=== PATIENT | female | born 1995 | race Caucasian/White ===

== ENCOUNTER 2017-12-07 00:12 | Emergency (ER) | payer OTHER ==
--- NOTE | 2017-12-07 01:52 | PDOC ---
History of Present Illness - General History Source: Patient Exam Limitations: No Limitations <Chidi Rosales - Last Filed: 12/07/17 01:52> - General History Source: Patient Exam Limitations: No Limitations - History of Present Illness Initial Comments: 12/07/17 02:01 The patient is a 22 year old female with a significant PMH of anemia who presents to the emergency department with a headache beginning approximately 3 days ago. The patient describes her headache as an intermittent pressure-like sensation which is sometimes diffuse but is mostly localized to the left side. She reports she has been taking 2 ibuprofen daily to significant relief but notes her headache returns the next morning. The patient states she has an irregular sleep schedule and sometimes stays up all night watching TV, which she states aggravates her headache. The patient denies history of migraines. The patient denies chest pain, shortness of breath, and dizziness. Denies fever, chills, nausea, vomit, diarrhea and constipation. Denies dysuria, frequency, urgency and hematuria. Allergies: NKA Past surgical history: None reported. Social history: No reported cigarette, alcohol, or drug use. PCP: Dr. Philip Barker <Chidi Chi - Last Filed: 12/07/17 02:02> - General Stated Complaint: HEADACHE Time Seen by Provider: 12/07/17 01:27 Review of Systems - Review of Systems Able to Perform ROS?: Yes Comments:: 12/07/17 02:01 GENERAL/CONSTITUTIONAL: No fever or chills. No weakness. HEAD, EYES, EARS, NOSE AND THROAT: No change in vision. No ear pain or discharge. No sore throat. CARDIOVASCULAR: No chest pain or shortness of breath. RESPIRATORY: No cough, wheezing, or hemoptysis. GASTROINTESTINAL: No nausea, vomiting, diarrhea or constipation. GENITOURINARY: No dysuria, frequency, or change in urination. MUSCULOSKELETAL: No joint or muscle swelling or pain. No neck or back pain. SKIN: No rash NEUROLOGIC: (+) Headache. No vertigo, loss of consciousness, or change in strength/sensation. ENDOCRINE: No increased thirst. No abnormal weight change. HEMATOLOGIC/LYMPHATIC: No anemia, easy bleeding, or history of blood clots. ALLERGIC/IMMUNOLOGIC: No hives or skin allergy. <Chidi Chi - Last Filed: 12/07/17 02:02> *Physical Exam - Physical Exam Comments: 12/07/17 02:02 GENERAL: Awake, alert, and fully oriented, in no acute distress HEAD: No signs of trauma EYES: PERRLA, EOMI, sclera anicteric, conjunctiva clear ENT: Auricles normal inspection, hearing grossly normal, nares patent, oropharynx clear without exudates. Moist mucosa NECK: Normal ROM, supple, no lymphadenopathy, JVD, or masses LUNGS: Breath sounds equal, clear to auscultation bilaterally. No wheezes, and no crackles HEART: Regular rate and rhythm, normal S1 and S2, no murmurs, rubs or gallops ABDOMEN: Soft, nontender, normoactive bowel sounds. No guarding, no rebound. No masses EXTREMITIES: Normal range of motion, no edema. No clubbing or cyanosis. No cords, erythema, or tenderness NEUROLOGICAL: Cranial nerves II through XII intact. 5/5 strength in upper and lower extremities. Sensation intact. No pronator drift. Normal speech, normal gait SKIN: Warm, Dry, normal turgor, no rashes or lesions noted. <Chidi Chi - Last Filed: 12/07/17 02:02> Medical Decision Making - Medical Decision Making 12/07/17 01:52 A portion of this note was documented by scribe services under my direction. I have reviewed the details of the note, within reason, and agree with the documentation with the following case summary and management plan written by me. Patient treated in the ED. Nursing notes are reviewed and incorporated into the medical decision-making. Vital signs reviewed. Peripheral IV access obtained by the nurse, laboratory studies are drawn and sent, reviewed and interpreted by myself. 22-year-old female with no past medical history presents with tension-like headache for several days. Patient reports that her sleep pattern has been very off. At times she was still very late week of very early. Has developed a left- sided tension-like headache and some mild photophobia. Denies neck stiffness, fevers, chills or worse headache of life. Patient reports of headache is gradual and resolves with Motrin. Patient states that she was taking about her headache and got nervous so came to the ER for check up. She denies any neurological deficits. I suspect this is likely tension headache exacerbated by poor sleep hygiene. I did discuss the potential diagnostic test of CAT scan the head with the patient. However, given that the headache is mild to moderate and resolves with Motrin, we had both decided and share decision-making to defer on CAT scan given the radiation risk and to treat symptomatically with NSAIDs. Advised patient if the headache persists for another week to return to the ER for CAT scan the head. We will give a referral to neurology. I discussed the physical exam findings, ancillary test results and final diagnoses with the patient. I answered all of the patient's questions. The patient was satisfied with the care received and felt comfortable with the discharge plan and treatment plan. The patient will call their primary care physician within 24 hours to arrange follow-up and will return to the Emergency Department with any new, persistant or worsening symptoms. <Chidi Rosales - Last Filed: 12/07/17 01:52> *DC/Admit/Observation/Transfer - Discharge Dispostion Decision to Admit order: No <Chidi Rosales - Last Filed: 12/07/17 01:52> - Attestations Scribe Attestion: 12/07/17 02:02 Documentation prepared by Chidi Chi, acting as emergency medical service coordinator for Chidi Rosales MD. <Chidi Chi - Last Filed: 12/07/17 02:02> Diagnosis at time of Disposition: Headache Qualifiers: Headache type: unspecified Headache chronicity pattern: unspecified pattern Intractability: not intractable Qualified Code(s): R51 - Headache - Discharge Dispostion Disposition: HOME Condition at time of disposition: Good - Referrals Referrals: Philip Sahu MD [Primary Care Provider] - Ricco Vazquez MD [Staff Physician] - - Patient Instructions Printed Discharge Instructions: DI for Headache Additional Instructions: Please take 400 mg ibuprofen (motrin) every 6 hours as needed for headache. If you notice that your headache is persistent for more than 1 week, please call and make an appointment with a neurologist and/or return to the ER for a CT scan of your head. Please try to maintain a normal sleep schedule. Avoid alcohol until your headache is improved. - Post Discharge Activity
[2017-12-07 02:03] VITALS: BP 112/64; PULSE 70; TEMP 98.2; BMI 22.4
== END 2017-12-07 02:49 | disposition home or self-care (01) ==
LOC: JER 00:12
DX: R51 Headache (principal)
CPT/HCPCS: 99281-25

== ENCOUNTER 2018-08-23 18:00 | Emergency (ER) | payer OTHER ==
[2018-08-23 18:11] VITALS: BP 112/75; PULSE 99; TEMP 100.1; BMI 22.8
--- NOTE | 2018-08-23 18:58 | PDOC ---
History of Present Illness - General Chief Complaint: Sore Throat Stated Complaint: FEVER/SORE THROAT Time Seen by Provider: 08/23/18 18:58 History Source: Patient Past History - Past Medical History Allergies/Adverse Reactions: Allergies Allergy/AdvReac Type Severity Reaction Status Date / Time No Known Allergies Allergy Verified 12/07/17 02:03 Home Medications: Ambulatory Orders NK [No Known Home Medication] 08/23/18 - Suicide/Smoking/Psychosocial Hx Smoking History: Unknown if ever smoked Have you smoked in the past 12 months: No Information on smoking cessation initiated: No Hx Alcohol Use: No Drug/Substance Use Hx: No *Physical Exam - Vital Signs Last Vital Signs Temp Pulse Resp BP Pulse Ox 100.1 F H 99 H 20 112/75 98 08/23/18 18:07 08/23/18 18:07 08/23/18 18:07 08/23/18 18:07 08/23/18 18:07 Moderate Sedation - Procedure Monitoring Vital Signs: Procedure Monitoring Vital Signs Temperature 100.1 F H 08/23/18 18:07 Pulse Rate 99 H 08/23/18 18:07 Respiratory Rate 20 08/23/18 18:07 Blood Pressure 112/75 08/23/18 18:07 O2 Sat by Pulse Oximetry (%) 98 08/23/18 18:07
[2018-08-23] MEDS ORDERED: PENICILLIN G BENZATHINE 1,200,000 UNIT/2 ML PFS IM ONE (19:05)
[2018-08-23] MEDS ORDERED: PENICILLIN G BENZATHINE 2,400,000 UNIT/4 ML PFS ONE (19:11)
--- NOTE | 2018-08-23 19:16 | PDOC ---
History of Present Illness - General Chief Complaint: Sore Throat Stated Complaint: FEVER/SORE THROAT Time Seen by Provider: 08/23/18 18:58 History Source: Patient Exam Limitations: No Limitations - History of Present Illness Initial Comments: 08/23/18 19:05 Here with complaints of acute onset of sore throat pain, fevers and chills, difficulty swallowing 2 days ago. Has been using Tylenol and Motrin with some resolved. Has no cough, no one else at home is sick. States feels like she may have strep throat as has had in the past last year Timing/Duration: unsure Severity: mild, moderate Associated Symptoms: reports: fever/chills, malaise Past History - Travel Traveled outside of the country in the last 30 days: No Close contact w/someone who was outside of country & ill: No - Past Medical History Allergies/Adverse Reactions: Allergies Allergy/AdvReac Type Severity Reaction Status Date / Time No Known Allergies Allergy Verified 12/07/17 02:03 Home Medications: Ambulatory Orders Ibuprofen 400 mg PO Q6H PRN #30 tablet 08/23/18 - Suicide/Smoking/Psychosocial Hx Smoking History: Unknown if ever smoked Have you smoked in the past 12 months: No Information on smoking cessation initiated: No Hx Alcohol Use: No Drug/Substance Use Hx: No Review of Systems - Review of Systems Able to Perform ROS?: Yes Is the patient limited Hebrew proficient: Yes Constitutional: Yes: Symptoms Reported, See HPI, Chills, Fever, Malaise HEENTM: Yes: Symptoms Reported, See HPI, Nose Congestion, Throat Pain, Throat Swelling, Difficulty Swallowing Respiratory: Yes: See HPI Integumentary: Yes: Symptoms Reported, See HPI All Other Systems: Reviewed and Negative *Physical Exam - Vital Signs Last Vital Signs Temp Pulse Resp BP Pulse Ox 100.1 F H 99 H 20 112/75 98 08/23/18 18:07 08/23/18 18:07 08/23/18 18:07 08/23/18 18:07 08/23/18 18:07 - Physical Exam General Appearance: Yes: Nourished, Appropriately Dressed HEENT: positive: TITA, TMs Normal, Pharyngeal Erythema, Tonsillar Exudate, Tonsillar Erythema, Nasal Congestion, Rhinorrhea. negative: Pharynx Normal Neck: positive: Tender, Supple, Lymphadenopathy (R), Lymphadenopathy (L) Respiratory/Chest: positive: Lungs Clear Musculoskeletal: positive: Normal Inspection Extremity: positive: Normal Capillary Refill, Normal Inspection Integumentary: positive: Normal Color, Pale Neurologic: positive: activities therapist II-XII NML intact, Fully Oriented, Alert, Normal Mood/ Affect, Normal Response Moderate Sedation - Procedure Monitoring Vital Signs: Procedure Monitoring Vital Signs Temperature 100.1 F H 08/23/18 18:07 Pulse Rate 99 H 08/23/18 18:07 Respiratory Rate 20 08/23/18 18:07 Blood Pressure 112/75 08/23/18 18:07 O2 Sat by Pulse Oximetry (%) 98 08/23/18 18:07 Medical Decision Making - Medical Decision Making 08/23/18 19:17 Pharyngitis, probable strep. Treated with one dose of 1.2 million units Bicillin IM with no reaction after 30 minutes. *DC/Admit/Observation/Transfer Diagnosis at time of Disposition: Pharyngitis Qualifiers: Pharyngitis/tonsillitis etiology: unspecified etiology Qualified Code(s): J02.9 - Acute pharyngitis, unspecified - Discharge Dispostion Disposition: HOME Condition at time of disposition: Stable Decision to Admit order: No - Prescriptions Prescriptions: Ibuprofen 400 mg PO Q6H PRN #30 tablet PRN Reason: Pain - Referrals - Patient Instructions Printed Discharge Instructions: DI for Pharyngitis/Tonsillopharyngitis -- Adult Additional Instructions: Rest, drink lots of fluids: Teas, water, soups Eat cold things: Ice cream, ice pops, ice chips Saltwater gargles Steamy showers/seem to face break up mucus Avoid contact with others until fevers and pain resolved Lots of handwashing and good hygiene, this is contagious You have been treated with Bicillin LA 1.2 million units injection which is a one-time treatment for strep pharyngitis. You will not need to take any further antibiotics. Tylenol or Motrin for fever and pain Followup with private physician in one to 2 days as needed if not improving Return to emergency department for worsened symptoms, fevers, dehydration - Post Discharge Activity
== END 2018-08-23 19:43 | disposition home or self-care (01) ==
LOC: JERFT 18:00
DX: J02.9 Acute pharyngitis, unspecified (principal)
CPT/HCPCS: 96372; 99281-25

== ENCOUNTER 2021-08-29 11:32 | Observation (INO) | payer OTHER ==
[2021-08-29] MEDS ORDERED: ACETAMINOPHEN 1000 MG/100 ML BAG IVPB ONE (12:45)
[2021-08-29] MEDS ORDERED: SODIUM CHLORIDE 1,000 ML IV STA (12:45)
[2021-08-29] MEDS ORDERED: ONDANSETRON 4 MG/2 ML VIAL IVPUSH ONE (12:45)
[2021-08-29] MEDS ORDERED: ACETAMINOPHEN INJECTION 100 ML IVPB ONE (13:27)
[2021-08-29] MEDS ORDERED: ONDANSETRON 4 MG/2 ML VIAL ONE (13:28)
[2021-08-29 14:15] LABS: BASO % 0.2 % (0-2.0); LYMPH % 6.6 % (8-40); MCHC 29.2 g/dl (32.0-36.0); MEAN PLT VOLUME 9.6 fl (7.5-11.1); MONO % 5.3 % (3.8-10.2); NEUT % 87.9 % (42.8-82.8); PLATELET COUNT 278 10^3/uL (134-434); RBC 4.18 M/mm3 (3.60-5.2); RDW 23.3 % (11.6-15.6)
[2021-08-29 14:27] LABS: ALBUMIN 3.6 g/dl (3.4-5.0); BLOOD UREA NITROGEN 7.2 mg/dL (7-18); CALCIUM 8.5 mg/dL (8.5-10.1)
[2021-08-29 14:30] LABS: CREATININE 0.6 mg/dL (0.55-1.3)
[2021-08-29 14:31] LABS: BILIRUBIN,TOTAL 1.5 mg/dL (0.2-1)
[2021-08-29 14:32] LABS: TOT PROT 7.4 g/dl (6.4-8.2)
[2021-08-29 14:52] LABS: HEMOGLOBIN 6.7 GM/dL (10.7-15.3)
[2021-08-29 14:58] LABS: INR 1.27 (0.83-1.09); PROTHROMBIN TIME (PATIENT) 14.6 SEC (9.7-13.0)
[2021-08-29 16:50] LABS: ANISOCYTOSIS 3+; MACROCYTOSIS 0; OVALOCYTE 1+; TARGET CELLS 2+
[2021-08-29] MEDS ORDERED: ACETAMINOPHEN 325 MG TABLET (FP) PO ONE (20:27)
[2021-08-29] MEDS ORDERED: ACETAMINOPHEN 325 MG TABLET (FP) ONE (20:30)
[2021-08-29 20:51] LABS: EPI CELLS 15 /uL (0-25.1); HYALINE CASTS 1 /uL (0-3.1); PH,URINE 5.5 (5.0-8.0); URINE APPEARANCE CLOUDY; URINE BACTERIA 1500 /uL (0-1359); URINE BILIRUBIN NEGATIVE (NEGATIVE); URINE COLOR YELLOW; URINE GLUCOSE (UA) NEGATIVE (NEGATIVE); URINE KETONE 1+ (NEGATIVE); URINE LEUK ESTERASE 2+ (NEGATIVE); URINE NITRITE NEGATIVE (NEGATIVE); URINE PROTEIN 1+ (NEGATIVE); URINE RBC 347 /uL (0-23.9); URINE UROBILINOGEN 0.2 mg/dL (0.2-1.0); URINE WBC 1669 /uL (0-25.8)
[2021-08-29 20:52] LABS: HCG,QUALITATIVE URINE Negative
[2021-08-30] MEDS ORDERED: DOXYCYCLINE HYCLATE 100 MG VIAL ONE ×3 (00:40→21:16)
[2021-08-30] MEDS: SODIUM CHLORIDE 1,000 ML IV SCH ×2 (00:59→23:38)
[2021-08-30] MEDS ORDERED: ACETAMINOPHEN 325 MG TABLET (FP) PO PRN (01:00)
[2021-08-30 02:14] LABS: HIV INTERPRETATION NEGATIVE (NEGATIVE)
[2021-08-30] MEDS: DOXYCYCLINE INJECTION 100 MG in DEXTROSE 5%-WATER 100 ML IVPB SCH ×3 (03:06→21:50)
[2021-08-30] MEDS ORDERED: ENOXAPARIN NA (PORCINE) 40 MG/0.4 ML DISP.SYRIN SQ SCH (10:00)
[2021-08-30] MEDS ORDERED: FLUCONAZOLE 150 MG TABLET PO ONE (10:00)
[2021-08-30 10:16] LABS: BASO % 0.3 % (0-2.0); CALCIUM 7.8 mg/dL (8.5-10.1); EOS % 0.6 % (0-4.5); HEMATOCRIT 27.1 % (32.4-45.2); HEMOGLOBIN 8.6 GM/dL (10.7-15.3); LYMPH % 17.4 % (8-40); MCHC 31.7 g/dl (32.0-36.0); MEAN CELL VOLUME 62.3 fl (80-96); MEAN PLT VOLUME 10.5 fl (7.5-11.1); MONO % 5.2 % (3.8-10.2); NEUT % 76.5 % (42.8-82.8); PLATELET COUNT 223 10^3/uL (134-434); RBC 4.35 M/mm3 (3.60-5.2); RDW 32.8 % (11.6-15.6); WHITE BLOOD COUNT 8.4 K/mm3 (4.0-10.0)
[2021-08-30 10:17] LABS: ALBUMIN 3.1 g/dl (3.4-5.0); BLOOD UREA NITROGEN 7.8 mg/dL (7-18)
[2021-08-30 10:20] LABS: CREATININE 0.6 mg/dL (0.55-1.3); MCH 19.8 pg (25.7-33.7); PHOSPHOROUS 2.5 mg/dL (2.5-4.9)
[2021-08-30 10:21] LABS: BILIRUBIN,TOTAL 1.7 mg/dL (0.2-1); TOT PROT 6.3 g/dl (6.4-8.2)
[2021-08-30] MEDS ORDERED: DEXTROSE 5%-WATER 100 ML IVPB ONE ×2 (11:02→21:16)
[2021-08-30] MEDS ORDERED: cefTRIAXone SODIUM 1 GM VIAL ONE (11:03)
[2021-08-30] MEDS ORDERED: DEXTROSE 5%-WATER - 50 ML IVPB ONE (11:03)
[2021-08-30] MEDS: CEFTRIAXONE 1 GM in DEXTROSE 5%-WATER - 50 ML IVPB SCH (11:56)
[2021-08-31] MEDS ORDERED: DOXYCYCLINE HYCLATE 100 MG VIAL ONE (09:30)
[2021-08-31] MEDS ORDERED: cefTRIAXone SODIUM 1 GM VIAL ONE (09:31)
[2021-08-31] MEDS ORDERED: DEXTROSE 5%-WATER - 50 ML IVPB ONE (09:31)
[2021-08-31] MEDS ORDERED: DEXTROSE 5%-WATER 100 ML IVPB ONE (09:31)
[2021-08-31] MEDS: DOXYCYCLINE INJECTION 100 MG in DEXTROSE 5%-WATER 100 ML IVPB SCH (09:38)
[2021-08-31] MEDS: CEFTRIAXONE 1 GM in DEXTROSE 5%-WATER - 50 ML IVPB SCH (09:39)
[2021-08-31 09:43] LABS: BASO % 0.8 % (0-2.0); EOS % 1.4 % (0-4.5); MCHC 32.1 g/dl (32.0-36.0); MEAN PLT VOLUME 10.2 fl (7.5-11.1); MONO % 5.5 % (3.8-10.2); NEUT % 69.3 % (42.8-82.8); PLATELET COUNT 289 10^3/uL (134-434); RBC 4.52 M/mm3 (3.60-5.2); RDW 32.3 % (11.6-15.6); WHITE BLOOD COUNT 5.5 K/mm3 (4.0-10.0)
[2021-08-31 09:53] LABS: MCH 19.9 pg (25.7-33.7)
[2021-08-31] MEDS ORDERED: FERRIC CARBOXYMALTOSE 750 MG in SODIUM CHLORIDE 250 ML IVPB ONE (10:07)
[2021-08-31 10:08] LABS: SARS-CoV-2 NAA Not Detected (Not Detected)
[2021-08-31 10:55] LABS: CALCIUM 8.7 mg/dL (8.5-10.1)
[2021-08-31 10:56] LABS: BLOOD UREA NITROGEN 7.6 mg/dL (7-18)
[2021-08-31 10:59] LABS: CREATININE 0.7 mg/dL (0.55-1.3)
[2021-08-31 14:47] VITALS: BP 116/77; PULSE 57; TEMP 98.7
== END 2021-08-31 15:30 | disposition home or self-care (01) ==
LOC: JER 11:32 → JERBED 21:12 → J7W 08-30 01:09
PROVIDERS: ADMIT Internal Medicine
PROC: 3E033NZ Introduction of Analgesics, Hypnotics, Sedatives into Peripheral Vein, Percutaneous Approach (ICD-10-PCS; principal; 2021-08-29)
PROC: 3E03329 Introduction of Other Anti-infective into Peripheral Vein, Percutaneous Approach (ICD-10-PCS; 2021-08-29)
PROC: 3E0337Z Introduction of Electrolytic and Water Balance Substance into Peripheral Vein, Percutaneous Approach (ICD-10-PCS; 2021-08-29)
PROC: 30233N1 Transfusion of Nonautologous Red Blood Cells into Peripheral Vein, Percutaneous Approach (ICD-10-PCS; 2021-08-29)
DX: D50.9 Iron deficiency anemia, unspecified (principal); R10.84 Generalized abdominal pain; R01.1 Cardiac murmur, unspecified; A41.9 Sepsis, unspecified organism; F17.290 Nicotine dependence, other tobacco product, uncomplicated
CPT/HCPCS: 36415; 36430; 36511; 74177-TC; 76775-TC; 76830-TC; 80048; 80053; 81003; 82728; 83021; 83540; 83550; 83690; 83735; 84100; 84703; 85025; 85610; 85660; 86705; 86707; 86780; 86850; 86900; 86901; 86922; 87040; 87086; 87102; 87210; 87340; 87350; 87389; 87491; 87517; 87522; 87591; 93005; 93010; 96365; 96367; 96375; 99285-25; C9803; G0378; P9038; P9058; Q9967; U0003; U0005

== ENCOUNTER 2023-05-31 02:06 | Emergency (ER) | payer OTHER ==
[2023-05-31] MEDS ORDERED: ACETAMINOPHEN 1000 MG/100 ML BAG IVPB ONE (02:28)
[2023-05-31] MEDS ORDERED: ACETAMINOPHEN INJECTION 100 ML IVPB ONE (02:37)
[2023-05-31 02:46] VITALS: BMI 24.7
[2023-05-31 02:56] LABS: BASO % 1.2 % (0-2.0); EOS % 0.8 % (0-4.5); HEMATOCRIT 31.1 % (32.4-45.2); HEMOGLOBIN 9.9 GM/dL (10.7-15.3); LYMPH % 25.9 % (8-40); MEAN CELL VOLUME 60.5 fl (80-96); MEAN PLT VOLUME 9.1 fl (7.5-11.1); NEUT % 66.1 % (42.8-82.8); RBC 5.14 M/mm3 (3.60-5.2); RDW 21.5 % (11.6-15.6); WHITE BLOOD COUNT 5.5 K/mm3 (4.0-10.0)
[2023-05-31 03:13] LABS: MCH 19.3 pg (25.7-33.7)
[2023-05-31 03:17] LABS: INR 0.95 (0.83-1.09)
[2023-05-31 03:19] LABS: ACTIVATED PTT 33.2 SECONDS (25.2-36.5)
[2023-05-31 03:20] LABS: POTASSIUM 3.8 mmol/L (3.5-5.1)
[2023-05-31 03:22] LABS: ALBUMIN 4.2 g/dl (3.4-5.0); CALCIUM 8.7 mg/dL (8.5-10.1)
[2023-05-31 03:25] LABS: CREATININE 0.7 mg/dL (0.55-1.3)
[2023-05-31 03:27] LABS: BILIRUBIN,TOTAL 0.6 mg/dL (0.2-1)
[2023-05-31 04:02] LABS: BLOOD UREA NITROGEN 12.6 mg/dL (7-18); TOT PROT 8.3 g/dl (6.4-8.2)
[2023-05-31 04:35] VITALS: BP 108/74; PULSE 80; RESP 18; TEMP 98.2
[2023-05-31 06:32] LABS: ANISOCYTOSIS 3+; MACROCYTOSIS 0; OVALOCYTE 1+; ROULEAU 1+; TARGET CELLS 1+
[2023-05-31 06:34] LABS: PLATELET COUNT 297 10^3/uL (134-434)
== END 2023-05-31 06:39 | disposition home or self-care (01) ==
LOC: JER 02:06
PROC: 3E033NZ Introduction of Analgesics, Hypnotics, Sedatives into Peripheral Vein, Percutaneous Approach (ICD-10-PCS; principal; 2023-05-31)
DX: R07.89 Other chest pain (principal); R00.2 Palpitations; R06.02 Shortness of breath
CPT/HCPCS: 36415; 71046-TC-FY; 71250-TC; 80053; 84484; 84703; 85025; 85610; 85730; 86850; 86900; 86901; 93005; 93010; 99285-25

== ENCOUNTER 2023-08-29 09:52 | Emergency (ER) | payer OTHER ==
[2023-08-29 10:19] VITALS: BP 112/75; PULSE 77; RESP 18; TEMP 98.3; BMI 24.7
[2023-08-29] MEDS ORDERED: MAG HYDROX/AL HYDROX/SIMETH 30 ML UNIT-DOSE CUP ONE (11:57)
[2023-08-29] MEDS: MAG HYDROX/AL HYDROX/SIMETH 30 ML UNIT-DOSE CUP PO ONE (12:09)
== END 2023-08-29 12:44 | disposition home or self-care (01) ==
LOC: JER 09:52
DX: R07.9 Chest pain, unspecified (principal)
CPT/HCPCS: 71046-TC-FY; 93005; 93010; 99284-25

== ENCOUNTER 2024-08-16 22:17 | Emergency (ER) | payer OTHER ==
[2024-08-16 22:31] VITALS: BP 127/71; PULSE 76; RESP 18; TEMP 98; BMI 25.2
[2024-08-16] MEDS: SODIUM CHLORIDE 1,000 ML IV STA (23:28)
[2024-08-16 23:40] LABS: BASO % 1.2 % (0-2.0); EOS % 1.2 % (0-4.5); HEMOGLOBIN 7.8 GM/dL (10.7-15.3); MCH 16.3 pg (25.7-33.7); MCHC 29.9 g/dl (32.0-36.0); MEAN CELL VOLUME 54.4 fl (80-96); MEAN PLT VOLUME 9.4 fl (7.5-11.1); MONO % 9.8 % (3.8-10.2); NEUT % 60.8 % (42.8-82.8); PLATELET COUNT 336 10^3/uL (134-434); RBC 4.79 M/mm3 (3.60-5.2); RDW 22.6 % (11.6-15.6)
[2024-08-16 23:53] LABS: POTASSIUM 3.9 mmol/L (3.5-5.1)
[2024-08-16 23:55] LABS: ALBUMIN 4.1 g/dl (3.4-5.0); CALCIUM 9.2 mg/dL (8.5-10.1)
[2024-08-16 23:58] LABS: CREATININE 1.1 mg/dL (0.55-1.3)
[2024-08-17] LABS: BILIRUBIN,TOTAL 0.8 mg/dL (0.2-1)
[2024-08-17 00:51] LABS: HIV INTERPRETATION NEGATIVE (NEGATIVE)
[2024-08-17 01:14] LABS: ANISOCYTOSIS 3+; MACROCYTOSIS 0; OVALOCYTE 1+
== END 2024-08-17 00:36 | disposition home or self-care (01) ==
LOC: JER 22:17
PROC: 3E0337Z Introduction of Electrolytic and Water Balance Substance into Peripheral Vein, Percutaneous Approach (ICD-10-PCS; principal; 2024-08-16)
DX: R00.2 Palpitations (principal); D50.9 Iron deficiency anemia, unspecified; R06.02 Shortness of breath; R42 Dizziness and giddiness
CPT/HCPCS: 36415; 71046-TC-FY; 80053; 82550; 84484; 84703; 85025; 85379; 86803; 87389; 93005; 93010; 99285-25